=== PATIENT | female | born 1985 | race Native Hawaiian/Other Pacific Islander ===

== ENCOUNTER 2023-09-03 16:01 | Outpatient (CLI) | payer OTHER, SELFPAY | END 2023-09-03 16:02 | disposition home or self-care (01) | PROVIDERS: PCP Obstetrics & Gynecology; Visit Provider Obstetrics & Gynecology | DX: N92.0 Excessive and frequent menstruation with regular cycle (principal) | CPT/HCPCS: 80076; 82150; 83690 ==

== ENCOUNTER 2023-11-13 07:45 | Emergency (ER) | payer OTHER, SELFPAY ==
[2023-11-13 07:48] VITALS: BP 141/95; PULSE 116; RESP 18; TEMP 36.4; O2SAT 98; BMI 23.2
--- NOTE | 2023-11-13 07:54 | CRLHL7_ITS ---
For Patients: As a result of the Century Cures Act, medical imaging exams and procedure reports are released immediately into your electronic medical record. You may view this report before your referring provider. If you have questions, please contact your health care provider. INDICATION: Injury COMPARISON: None. TECHNIQUE: Three views right ankle FINDINGS: No fracture. Normal alignment. Joint spaces are normal. Focal sclerosis in the medial distal fibular diaphysis extends over a craniocaudal distance of about 1.5 centimeters. Could be related to an old healed fracture or a healed nonossifying fibroma. No aggressive features. Normal bone mineralization. Soft tissue swelling around the ankle. Right ankle joint effusion. No foreign body. IMPRESSION: 1. Right ankle joint effusion and soft tissue swelling. No acute osseous finding. 2. Eccentric sclerosis in the right distal fibula is probably related to a remote fracture or a healed nonossifying fibroma. No aggressive features. Dictated by Radha Wiley MD @ 11/13/2023 8:19:58 AM (Electronically Signed)
--- NOTE | 2023-11-13 07:55 | ED_ITS ---
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 She has walked on her foot, she has it wrapped in a Neftali wrap. Her medical history is reviewed. She has noticed a little less soft tissue swelling over the lateral malleolus today, this happened last night. Related Data Home Medications ?Medication ?Instructions ?Recorded ?Confirmed apple cider vinegar 300 mg tablet mg PO 01/25/22 01/25/22 magnesium oxide 400 mg PO QDAY 01/25/22 01/25/22 multivitamin 1 tab PO QAM 01/25/22 01/25/22 omeprazole 20 mg capsule,delayed 20 mg PO QDAY 01/25/22 01/25/22 release sertraline 50 mg tablet 50 mg PO QDAY 01/25/22 01/25/22 dextroamphetamine-amphetamine 15 15 mg PO BID 09/26/23 09/26/23 mg tablet (Adderall) Previous Rx's ?Medication ?Instructions ?Recorded lorazepam 0.5 mg tablet (Ativan) 0.5 - 1 mg (1 - 2 x 0.5 mg) PO 04/30/23 .prn #20 tabs sucralfate 1 gram tablet 1 g PO Q6H 12 weeks #336 tabs 09/03/23 norethindrone acetate 1 mg-ethinyl 1 tab PO QDAY #63 tabs 09/04/23 estradiol 20 mcg tablet (Loestrin) Allergies Allergy/AdvReac Type Severity Reaction Status Date / Time No Known Drug Allergies Allergy Verified 09/26/23 13:39 Review of Systems 2 Narrative: No prior ankle problems PFSH PFSH Medical History Microscopic hematuria ?R31.29 - Other microscopic hematuria (ICD-10) Yeast vaginitis ?B37.31 - Acute candidiasis of vulva and vagina (ICD-10) Dysmenorrhea ?N94.6 - Dysmenorrhea, unspecified (ICD-10) Idiopathic pancreatitis ?K85.00 - Idiopathic acute pancreatitis without necrosis or infection (ICD- 10) Anxiety ?F41.9 - Anxiety disorder, unspecified (ICD-10) Surgical History Sphincter of Oddi dysfunction ?K83.4 - Spasm of sphincter of Oddi (ICD-10) Family History Other Diabetes Heart disease High blood pressure High cholesterol Melanoma Social History Smoking Status: Never smoker Exam Narrative: Exam Narrative: Objective: Vital signs are within normal limits with the exception of slightly elevated pulse and diastolic blood pressure Right ankle shows some mild tenderness over her lateral malleolus no crepitus, no marked bruising, there is mild swelling over the lateral malleolus as well, some mild tenderness over the anterior ankle over her extensor tendons proximally, she is able to flex extend her ankle but it is painful to do so. Distal CMS intact. Const: Vital Signs, click to edit/add: Vital Signs - 24 hr 11/13/23 07:48 Temperature 97.5 F L Pulse Rate [Left P ulse Oximeter] 116 H Respiratory Rate 18 Blood Pressure [Ri ght Upper Arm] 141/95 H Pulse Oximetry 98 Oxygen Delivery Me thod Room Air Course Vital Signs Vital signs: Initial Vital Signs Temperature 97.5 F L 11/13/23 07:48 Temperature Source Temporal Artery Scan 11/13/23 07:48 Pulse Rate 116 H 11/13/23 07:48 Respiratory Rate 18 11/13/23 07:48 Blood Pressure 141/95 H 11/13/23 07:48 Blood Pressure Mean 110 H 11/13/23 07:48 Blood Pressure Position Sitting 11/13/23 07:48 Pulse Oximetry 98 11/13/23 07:48 Oxygen Delivery Method Room Air 11/13/23 07:48 Vital Signs Temperature 97.5 F L 11/13/23 07:48 Pulse Rate 116 H 11/13/23 07:48 Respiratory Rate 18 11/13/23 07:48 Blood Pressure 141/95 H 11/13/23 07:48 Pulse Oximetry 98 11/13/23 07:48 Oxygen Delivery Method Room Air 11/13/23 07:48 Temperature 97.5 F L 11/13/23 07:48 Pulse Rate 116 H 11/13/23 07:48 Respiratory Rate 18 11/13/23 07:48 Blood Pressure 141/95 H 11/13/23 07:48 Pulse Oximetry 98 11/13/23 07:48 Oxygen Delivery Method Room Air 11/13/23 07:48 Medical Decision Making MDM Narrative Medical decision making narrative: 38-year-old female with a injury to her right ankle and proximal foot with kicking a soccer ball. I think at this point to be reasonable to get an x-ray of her ankle to make sure there is no obvious fracture. Pending results disposition planning. Addendum 8:32 a.m. 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 Hayley reports that she hurt her ankle in the past. Would recommend a gel splint, ibuprofen, icing and activity as tolerated and recheck if not improving in the next few days. I think her basic injury is a hyperextension of her extensor tendons in her foot. Discharge Plan Discharge Clinical Impression: Ankle sprain and strain Patient Disposition: Home, Self-Care Condition: Stable Additional Instructions: Gel splint, ice, elevation, Advil as needed, return if problems or concerns, follow-up with ortho if not improving. Activity Level: Light activity and Wear Brace Discharge Diet: Regular Prescriptions: No Action dextroamphetamine-amphetamine [Adderall] 15 mg tablet 15 mg PO BID Rx Instructions: administer doses at least 4-6 hours apart sertraline 50 mg tablet 50 mg PO QDAY multivitamin Tablet 1 tab PO QAM omeprazole 20 mg capsule,delayed release(DR/EC) 20 mg PO QDAY magnesium oxide 400 mg magnesium tablet 400 mg PO QDAY apple cider vinegar 300 mg tablet PO lorazepam [Ativan] 0.5 mg tablet 0.5 - 1 mg PO .prn Qty: 20 0RF sucralfate 1 gram tablet 1 g PO Q6H 84 Days Qty: 336 0RF norethindrone ac-eth estradiol [Loestrin 05/25 ()] 1-20 mg-mcg tablet 1 tab PO QDAY Qty: 63 0RF Rx Instructions: Take one pill daily for three weeks. Then take no pills for one week. Expect menstrual-like bleeding during that time. Follow Up/Referrals: Provider,Not a Local [Staff Physician] - Stand Alone Forms: [place] Info Instructions
== END 2023-11-13 08:42 | disposition home or self-care (01) ==
PROVIDERS: Emergency Provider Family Medicine; PCP Family Medicine
DX: S93.401A Sprain of unspecified ligament of right ankle, initial encounter (principal); W21.02XA Struck by soccer ball, initial encounter; Y93.66 Activity, soccer
CPT/HCPCS: 73610; 99283

== ENCOUNTER 2024-08-19 15:11 | Outpatient (CLI) | payer OTHER, SELFPAY ==
--- NOTE | 2024-08-19 16:00 | CRLHL7_ITS ---
For Patients: As a result of the Century Cures Act, medical imaging exams and procedure reports are released immediately into your electronic medical record. You may view this report before your referring provider. If you have questions, please contact your health care provider. CLINICAL HISTORY: Pelvic pain TECHNIQUE: 2D garcia scale ultrasound. In addition color Doppler and spectral Doppler analysis was performed of the pelvis using a transabdominal and transvaginal approach. FINDINGS: The myometrium has a normal uniform echotexture. The uterus measures 8.4 x 4.8 x 5.5 cm. The endometrial lining measures 9.4 mm in thickness. The right ovary measures 2.7 x 2.1 x 1.8 cm in size and the left ovary measures 5.0 x 3.1 x 2.9 cm. The ovaries demonstrate normal arterial and venous blood flow on color Doppler and spectral Doppler analysis. There are no suspicious fluid collections within the cul-de-sac. Complex left ovarian cyst is present with internal reticular echoes. No internal blood flow. This measures 3.7 x 2.2 x 2.7 cm. Simple circumscribed anechoic left ovarian cyst measures 2.2 x 1.7 x 2.3 cm. IMPRESSION: 3.7 cm hemorrhagic left ovarian cyst. No torsion or excess pelvic free fluid. Dictated by Delmer Nunez MD @ 08/20/2024 8:22:29 PM (Electronically Signed)
== END 2024-08-19 15:12 | disposition home or self-care (01) ==
LOC: US 15:12
PROVIDERS: PCP Family Medicine; Visit Provider Obstetrics & Gynecology
DX: R10.2 Pelvic and perineal pain (principal); N83.202 Unspecified ovarian cyst, left side; N94.89 Other specified conditions associated with female genital organs and menstrual cycle
CPT/HCPCS: 76830; 76856; 93976